=== PATIENT | female | born 1995 | race Two or more races ===

== ENCOUNTER 2020-08-26 15:51 | Observation (INO) | payer MEDICAID, OTHER | END 2020-08-26 17:35 | disposition home or self-care (01) | LOC: LDRP 15:51 | PROVIDERS: ADMIT Specialist; ATTEND Specialist | DX: O46.93 Antepartum hemorrhage, unspecified, third trimester (principal); Z3A.34 34 weeks gestation of pregnancy | CPT/HCPCS: 59025; 76815; 81002; G0378 ==

== ENCOUNTER 2020-09-27 14:25 | Observation (INO) | payer MEDICAID ==
[2020-09-27] MEDS ORDERED: PREN1TAB71 OR (16:12)
[2020-09-27] MEDS ORDERED: FERR27TA2 PO (16:12)
== END 2020-09-27 17:45 | disposition home or self-care (01) ==
LOC: LDRP 14:25
PROVIDERS: ADMIT Specialist; ATTEND Specialist
DX: O09.33 Supervision of pregnancy with insufficient antenatal care, third trimester (principal); O26.893 Other specified pregnancy related conditions, third trimester; R10.9 Unspecified abdominal pain; Z3A.38 38 weeks gestation of pregnancy
CPT/HCPCS: 59025; 76805; 81002; G0378

== ENCOUNTER 2020-10-01 04:17 | Observation (INO) | payer MEDICAID ==
[~2020-10-01] VITALS: Ht 170.2 cm; Wt 63.5 kg
[~2020-10-01 04:17] MED LIST: FERR27TA2 PO; PREN1TAB71 OR
[2020-10-01 05:24] LABS: Basophils # (auto) 0 10 ^3/uL (0-0.2); Basophils % (auto) 0.3 % (0.0-2.0); Eosinophils # (auto) 0 10 ^3/uL (0-0.8); Eosinophils % (auto) 0.2 % (0.0-7.0); Hematocrit 36.5 % (36.0-46.0); Hemoglobin 12.7 g/dL (12.2-16.2); Lymphocytes # (auto) 2.8 10 ^3/uL (0.4-5.4); Lymphocytes % (auto) 20.5 % (10.0-50.0); Mean Corpuscular Hgb Conc. 34.8 g/dL (32.0-36.0); Mean Corpuscular Volume 94.7 fL (80.0-100.0); Monocytes # (auto) 0.9 10 ^3/uL (0-1.3); Monocytes % (auto) 6.3 % (0.0-12.0); Neutrophils % (auto) 72.7 % (37.0-80.0); Nucleated Red Blood Cells % 0.1 %; Platelet Count (auto) 103 10^3/uL (140-450); Red Blood Cells 3.85 10^6/uL (4.0-5.20); Red Cell Distribution Width 14.4 % (11.8-14.3); White Blood Cell 13.7 10^3/uL (4.4-10.8)
[2020-10-01 05:47] LABS: INR 0.9 (0.9-1.15); Partial Thromboplastin Time 26.5 sec (23.0-31.2)
[2020-10-01 05:51] LABS: Urine Bacteria FEW /hpf (None Seen); Urine Blood 1+ /uL (Negative); Urine Mucus FEW (None Seen); Urine Specific Gravity 1.015 (1.001-1.035); Urine WBC 1 /hpf (0 - 5)
[2020-10-01 05:54] LABS: Calcium 9.3 mg/dL (8.5-10.1); Potassium 3.9 mmol/L (3.5-5.1)
[2020-10-01 06:00] LABS: BUN/Creatinine Ratio 19.7; Bilirubin, Total 0.2 mg/dL (0.2-1.0); Total Protein 7.4 g/dL (6.4-8.2)
[2020-10-01 06:03] LABS: Alcohol, Urine < 3.0 mg/dL (0-10); Amphetamine Screen, Urine NEGATIVE (NEGATIVE); Barbiturate Scree,Urine NEGATIVE (NEGATIVE); Benzodiazephine Screen, Urine NEGATIVE (NEGATIVE); Cannabinoid Screen, Urine NEGATIVE (NEGATIVE); Cocaine Screen, Urine NEGATIVE (NEGATIVE); Opiate Scree,Urine NEGATIVE (NEGATIVE); Phencyclidine Screen, Urine NEGATIVE (NEGATIVE)
[2020-10-02 06:06] LABS: RPR Non Reactive (Non Reactive)
[2020-10-03 01:06] LABS: Rubella Antibodies, IgG <0.90 index (Immune >0.99)
== END 2020-10-01 06:10 | disposition home or self-care (01) ==
LOC: LDRP 04:17
PROVIDERS: ADMIT Obstetrics & Gynecology; ATTEND Obstetrics & Gynecology
DX: O62.9 Abnormality of forces of labor, unspecified (principal); Z3A.39 39 weeks gestation of pregnancy; Z79.899 Other long term (current) drug therapy
CPT/HCPCS: 36415; 59025; 80053; 80307; 81001; 81002; 85025; 85610; 85730; 86592; 86703; 86762; 86850; 86900; 86901; 87340; G0378

== ENCOUNTER 2020-10-01 09:09 | Observation (INO) | payer MEDICAID ==
[2020-10-01] MEDS ORDERED: ONDANSETRON HCL 4 MG/2 ML VIAL ONE (15:44)
== END 2020-10-01 10:35 | disposition home or self-care (01) ==
LOC: LDRP 09:09
PROVIDERS: ADMIT Obstetrics & Gynecology; ATTEND Obstetrics & Gynecology
DX: O62.9 Abnormality of forces of labor, unspecified (principal); Z3A.39 39 weeks gestation of pregnancy
CPT/HCPCS: 59025; 81002; 94760; G0378; J2405

== ENCOUNTER 2020-10-01 12:30 | Inpatient (IN) | payer MEDICAID ==
[~2020-10-01] VITALS: Ht 175.3 cm; Wt 86.2 kg
[2020-10-01] MEDS ORDERED: DERMOPLAST 60ML BOTTLE TOP PRN (13:15)
[2020-10-01] MEDS ORDERED: LIDOCAINE 2%HCL (LOCAL ANESTH.) INJ 20ML MDV IJ ONE (13:15)
[2020-10-01] MEDS ORDERED: WITCH HAZEL-GLYCERIN PAD TOP PRN (13:15)
[2020-10-01] MEDS ORDERED: PENICILLIN G POT 5MIL/D5 50ML 50 ML IV ONE (13:15)
[2020-10-01] MEDS ORDERED: PHISODERM TOP SOLN 240ML BTL TOP PRN (13:15)
[2020-10-01] MEDS: LACTATED RINGER'S 1,000 ML IV SCH ×2 (14:30→21:15)
[2020-10-01] MEDS ORDERED: LACT. RINGERS/OXYTOCIN 20UNITS 1,000 ML IV ONE (14:39)
[2020-10-01] MEDS ORDERED: miSOPROStol 50 MCG per PRE-CUT 1/2 TAB PR ONE (15:30)
[2020-10-01] MEDS ORDERED: miSOPROStol 50 MCG per PRE-CUT 1/2 TAB SL ONE (15:30)
[2020-10-01] MEDS ORDERED: miSOPROStol 100 mcg TAB ONE (15:31)
[2020-10-01] MEDS ORDERED: METHYLERGONOVINE MALEATE 0.2 MG/ML AMP IM ONE ×3 (15:31→17:00)
[2020-10-01] MEDS ORDERED: CARBOPROST TROMETHAMINE 250 MCG/1ML VIAL IM ONE ×3 (15:37→17:00)
[2020-10-01] MEDS ORDERED: CARBOPROST TROMETHAMINE 250 MCG/1ML VIAL IM PRN (15:40)
[2020-10-01] MEDS ORDERED: ONDANSETRON HCL 4 MG/2 ML VIAL IV ONE (15:45)
[2020-10-01] MEDS ORDERED: DIPHENOXYLATE W/ATROPINE 2.5 MG TAB ONE (15:49)
[2020-10-01] MEDS ORDERED: ONDANSETRON HCL 4 MG/2 ML VIAL IV PRN ×2 (17:00→21:30)
[2020-10-01] MEDS ORDERED: DIPHENOXYLATE W/ATROPINE 2.5 MG TAB PO PRN (17:00)
[2020-10-01] MEDS ORDERED: LACT. RINGERS/OXYTOCIN 20UNITS 500 ML IV ONE ×2 (17:00→17:30)
[2020-10-01] MEDS ORDERED: ACETAMINOPHEN 325 MG TAB PO PRN ×2 (17:00→21:30)
[2020-10-01] MEDS ORDERED: PENICILLIN G POTASSIUM 2,500,000 UNITS in D5W 5% 50 ML IV SCH (17:15)
[2020-10-01] MEDS ORDERED: ceFAZolin 1GM/50ML 50 ML IV SCH (17:25)
[2020-10-01] MEDS ORDERED: ceFAZolin 1GM/50ML 50 ML IV ONE (17:30)
[2020-10-01 19:30] VITALS: BP 99/52
[2020-10-01] MEDS: DIPHENOXYLATE W/ATROPINE 2.5 MG TAB PO PRN (19:51)
[2020-10-01] MEDS: IBUPROFEN 600 MG TAB PO PRN (21:38)
[2020-10-01 23:07] VITALS: BP 113/51
[2020-10-02] MEDS: ceFAZolin 1GM/50ML 50 ML IV SCH ×3 (01:59→18:11)
[2020-10-02] MEDS: DIPHENOXYLATE W/ATROPINE 2.5 MG TAB PO PRN (02:12)
[2020-10-02 02:54] VITALS: BP 85/51
[2020-10-02] MEDS: LACTATED RINGER'S 1,000 ML IV SCH (05:15)
[2020-10-02 06:06] LABS: RPR Non Reactive (Non Reactive)
[2020-10-02 06:43] VITALS: BP 94/53
[2020-10-02] MEDS: IBUPROFEN 600 MG TAB PO PRN ×2 (07:01→19:34)
[2020-10-02] MEDS: DOCUSATE CALCIUM 240 MG CAP PO SCH (10:00)
[2020-10-02 11:30] VITALS: BP 90/52
[2020-10-02 15:44] VITALS: BP 90/50
[2020-10-02 19:30] VITALS: BP 96/50
[2020-10-03 00:12] VITALS: BP 117/66
[2020-10-03 01:06] LABS: Rubella Antibodies, IgG <0.90 index (Immune >0.99)
[2020-10-03] MEDS: ceFAZolin 1GM/50ML 50 ML IV SCH ×2 (01:53→10:01)
[2020-10-03 03:00] VITALS: BP 96/58
[2020-10-03 07:30] VITALS: BP 104/66
[2020-10-03] MEDS: DOCUSATE CALCIUM 240 MG CAP PO SCH (09:56)
[2020-10-03] MEDS: IBUPROFEN 600 MG TAB PO PRN (10:00)
[2020-10-03] MEDS: LACTATED RINGER'S 1,000 ML IV SCH (10:01)
[2020-10-03 12:00] VITALS: BP 122/58
== END 2020-10-03 14:55 | disposition home or self-care (01) | DRG 560 ==
LOC: OBSVTOIN 12:30 → LDRP 12:30
PROVIDERS: ADMIT Obstetrics & Gynecology; ATTEND Obstetrics & Gynecology
PROC: 10E0XZZ Delivery of Products of Conception, External Approach (ICD-10-PCS; principal; 2020-10-01)
PROC: 0KQM0ZZ Repair Perineum Muscle, Open Approach (ICD-10-PCS; 2020-10-01)
DX: O69.81X0 Labor and delivery complicated by cord around neck, without compression, not applicable or unspecified (principal); O62.3 Precipitate labor; O70.1 Second degree perineal laceration during delivery; Z37.0 Single live birth; Z3A.39 39 weeks gestation of pregnancy; Z20.822 Contact with and (suspected) exposure to COVID-19; O71.82 Other specified trauma to perineum and vulva
CPT/HCPCS: 36415; 59025; 59409; 80053; 80307; 81001; 81002; 85025; 85610; 85730; 86592; 86703; 86762; 86850; 86900; 86901; 87340; 87426; 94760; 96360; 96361; 96365; 96366; 96372; 96374; 96375; G0378; J0690; J2405; J2540; J2590; J7060